=== PATIENT | female | born 2000 | race Caucasian/White ===

== ENCOUNTER → 2023-06-05 10:52 | Outpatient (REF) | payer OTHER, SELFPAY | LOC: PNTC 10:52 | PROVIDERS: ATTENDING PHYSICIAN Nurse Practitioner Family | DX: O26.841 Uterine size-date discrepancy, first trimester (principal) | CPT/HCPCS: 76816 ==

== ENCOUNTER 2023-07-03 04:37 | Inpatient (IN) | payer OTHER, SELFPAY ==
[2023-07-03 04:45] VITALS: BP 132/71
[2023-07-03 05:21] LABS: % Basophils 0.1 % (0-2); % Eosinophils 0.5 % (0-6); % Immature Granulocytes 0.5 % (0-0.5); % Lymphocytes 17.4 % (20.5-51.1); % Monocytes 3.5 % (1.7-9.3); Absolute Lymphocytes 1.4 10^3/uL (1.2-3.4); Absolute Monocytes 0.3 10^3/uL (0.1-0.6); Absolute Neutrophils 6.3 10^3/uL (1.4-6.5); Hematocrit 38.6 % (37.0-47.0); Hemoglobin 13.4 g/dL (12.0-16.0); Mean Corp Hgb Conc. 34.7 g/dL (33.0-37.0); Mean Corpuscular Hgb 30.9 pg (27.0-31.0); Mean Corpuscular Volume 88.9 fL (81.0-99.0); Nucleated Red Blood Cells % 0 %; Platelet Count 135 10^3/uL (130-400); Red Blood Cell Count 4.34 10^6/uL (4.20-5.40); Red Cell Dist. Width 12.7 % (11.5-14.5)
[2023-07-03] MEDS: PRENATAL PLUS PO (18:41)
[2023-07-04 06:20] LABS: Hematocrit 34.8 % (37.0-47.0); Hemoglobin 12.2 g/dL (12.0-16.0)
[2023-07-04] MEDS: SENOKOT-S 1 TABLET PO (08:35)
[2023-07-04] MEDS: PRENATAL PLUS 1 TABLET PO (08:35)
[2023-07-04 14:34] LABS: Syphilis/T. pallidum Ab Reflex Negative (Negative)
== END 2023-07-04 10:59 | disposition home or self-care (01) | DRG 807 ==
LOC: LDRP 04:37
PROVIDERS: ADMITTING PHYSICIAN Obstetrics & Gynecology
PROC: 10E0XZZ Delivery of Products of Conception, External Approach (ICD-10-PCS; 2023-07-03)
PROC: 10907ZC Drainage of Amniotic Fluid, Therapeutic from Products of Conception, Via Natural or Artificial Opening (ICD-10-PCS; 2023-07-03)
DX: O99.12 Other diseases of the blood and blood-forming organs and certain disorders involving the immune mechanism complicating childbirth (principal); Z37.0 Single live birth; D69.6 Thrombocytopenia, unspecified; Z3A.38 38 weeks gestation of pregnancy
CPT/HCPCS: 85014; 85018; 85025; 86780; 86850; 86870; 86900; 86901

== ENCOUNTER → 2024-04-13 12:48 | Day surgery (SDC) | payer BC, SELFPAY ==
[2024-04-13] VITALS (15 sets, daily range): BP systolic 79–114; BP diastolic 50–67
[2024-04-13 09:15] LABS: % Basophils 0.2 % (0-2); % Eosinophils 0.2 % (0-6); % Immature Granulocytes 0.7 % (0-0.5); % Lymphocytes 7.7 % (20.5-51.1); % Monocytes 2.9 % (1.7-9.3); % Neutrophils 88.3 % (42.2-75.2); Absolute Immature Granulocytes 0.1 10^3/uL (0-0.05); Absolute Monocytes 0.4 10^3/uL (0.1-0.6); Absolute Neutrophils 11.2 10^3/uL (1.4-6.5); Hematocrit 35.7 % (37.0-47.0); Hemoglobin 12.5 g/dL (12.0-16.0); Mean Corpuscular Hgb 31.3 pg (27.0-31.0); Mean Corpuscular Volume 89.3 fL (81.0-99.0); Mean Platelet Volume 12.9 fL (7.4-10.4); Nucleated Red Blood Cells % 0 %; Platelet Count 145 10^3/uL (130-400); Red Cell Dist. Width 12.7 % (11.5-14.5); White Blood Cell Count 12.7 10^3/uL (4.8-10.8)
[2024-04-13 09:34] LABS: ALT (SGPT) 15 U/L (0-35); AST (SGOT) 22 U/L (14-36); Alkaline Phosphatase 45 U/L (38-126); Blood Urea Nitrogen 17 mg/dl (7-17); Calcium 8.8 mg/dl (8.4-10.2); Carbon Dioxide 20 mmol/L (22-30); Chloride 104 mmol/L (98-107); Glucose 148 mg/dl (70-99); Sodium 138 mmol/L (135-145); Total Bilirubin 0.7 mg/dl (0.2-1.3); Total Protein 7.6 g/dl (6.3-8.2); eGFR > 60.00
[2024-04-13] MEDS: NSS 1000 IV (09:44)
--- NOTE | 2024-04-13 10:16 | ED.GENMED ---
History of Present Illness
General
Chief Complaint: Fainting/Passed Out
Source: patient
Exam Limitations: none
Time Seen by Provider: 04/13/24 09:23
Nursing documentation reviewed up to this point in time: agreed with
History of Present Illness
History of Present Illness:
Patient presents to ED after multiple episodes of syncope at home, witnessed by her . Denies any injuries from the fall, as she was lowered to the ground by her . Patient states that she felt lightheaded prior to passing out. Of
note, patient reports taking Cytotec medication last night at 9 PM, and has been bleeding since then. Patient was given medication by her PHARMACY SERVICES DIRECTOR physician yesterday after ultrasound revealed miscarriage, as it was initially suspected few weeks back.
Patient denies chest pain or shortness of breath. Denies dizziness at rest. Denies weakness. Denies nausea or vomiting. Denies abdominal pain. Denies vomiting. Denies recent illness. Denies recent change in medications or diet. Patient
otherwise is healthy, without any other significant medical history. Patient has had 2 previous uncomplicated .
Review of Systems
Review of Systems
Allergies reviewed?: Yes
All Other Systems: ROS reviewed and negative except as documented in HPI and ROS
Constitutional: Reports no symptoms; Denies fever
Respiratory: Reports no symptoms
Cardiac: Reports syncope; Denies chest pain or palpitations
ABD/GI: Reports nausea; Denies abdominal pain or vomiting
: Reports bleeding
Musculoskeletal: Reports no symptoms
Skin: Reports no symptoms
Neurological: Reports dizzy
Phy Exam
Physical Exam
Physical Exam:
Physical Exam
General: mild distress, not acutely ill. afebrile
Head: nc/at. eomi
Neck: supple. no meningeal signs.
Heart: s1/s2 regular rate and rhythm, no murmur. equal radial pulses.
Lungs: no acute respiratory distress. clear bilaterally
Abdomen: normal bowel sounds. not tender. no distention.
Neuro: alert and oriented. no focal neurological deficits
Skin: no rash
Psychiatric: well kept. interactive and cooperative
Extremities: no edema. no calf tenderness.
Course
Orders/Labs/Results
Orders:
Orders
04/13/24 08:49
EKG [Electrocardiogram (*1)] Urgent
Reason for Study: Syncope
EKG- Treatment ONCE
04/13/24 09:00
Beta HCG Quantitative Urgent
Comment: ADD ON
CBC/With Diff [Complete Blood Count/With Diff] Urgent
Comprehensive Metabolic Panel Urgent
04/13/24 09:29
Type And Crossmatch [Type+Screen] Urgent
04/13/24 09:39
Add On- LAB Urgent
Tests Added?: hcg quant
04/13/24 09:44
0.9% Sodium Chloride 1000 ml [Nss] 1,000 ml IV BOLUS
04/13/24 Lunch
NPO
Allow oral meds: No
Allow clear liquids: No
04/13/24 10:22
0.9% Sodium Chloride 500 ml [Nss] 500 ml IV BOLUS
04/13/24 10:25
US Pelvis Transvaginal Only Urgent
Reason For Exam: vaginal bleeding, s/p miscarriage
04/13/24 10:52
Hematocrit Urgent
Hemoglobin Urgent
04/13/24 10:57
Sequential Compression Sleeves [Pneumatic Compression Sleeves] As Directed
Type: Knee high
04/13/24 10:58
Doxycycline Hyclate [Vibramycin] 200 mg 0.9% Sodium Chloride 250 ml [Nss] 250 ml IV PRE OP
DX Deep Vein Thrombosis Video Routine
04/13/24 11:51
Fentanyl Citrate/Pf [Sublimaze] 100 mcg .ROUTE .STK-MED ONE
Lidocaine HCl/Pf [Xylocaine-Mpf 1% Vial] 50 mg .ROUTE .STK-MED ONE
Midazolam HCl [Versed] 2 mg .ROUTE .STK-MED ONE
Propofol [Diprivan] 20 ml .ROUTE .STK-MED
04/13/24 12:04
* Blood Bank Products Urgent
Blood Bank Products: *Packed RBC Leuko(PRBC's)
Quantity: 2
Transfuse Today: Hold for OR
Reason: Bleeding
04/13/24 12:16
HYDROmorphone [Dilaudid] 0.25 mg IV PACU-Q5MPRN PRN
HYDROmorphone [Dilaudid] 0.5 mg IV PACU-Q5MPRN PRN
Meperidine [Demerol] 12.5 mg IV PACU-Q5MPRN PRN
Ondansetron Injectable [Zofran] 4 mg IV PACU-ONCEPRN PRN
Prochlorperazine [Compazine] 5 mg IV PACU-ONCEPRN PRN
Notify MD As Directed
Notify physician if: for SDS patients with known or suspected sleep obstructive sleep apnea, monitor in the
PACU.
Notify MD for any apneic/desaturation episodes
O2 Therapy [RESP] Urgent
Titrate/Wean O2 to maintain O2 sat greater than (%): 92
Special Instructions: -Provide supplemental oxygen to achieve O2 sat of 92% or greater.
-After 15 min, may wean O2 and discontinue if patient is able to maintain O2 sat of 92%
or greater during recovery period.
If patient is a discharge home, without oxygen therapy, notify anestheiologist if
unable to maintain O2 SAT of 92% or greater on room air for MD clearance.
04/13/24 12:30
Normosol (Mult Electrolytes) [Normosol-R/Plasmalyte-A] 1,000 ml IV PER PROTOCOL
04/13/24 12:48
Phenylephrine HCl/0.9% NaCl [Yaron-Synephrine] 1,000 mcg .ROUTE .STK-MED ONE
04/13/24 12:53
Dexamethasone Sod Phosphate [Decadron] 20 mg .ROUTE .STK-MED ONE
Ketorolac [Toradol] 30 mg .ROUTE .STK-MED ONE
Ondansetron Injectable [Zofran] 4 mg .ROUTE .STK-MED ONE
04/13/24 13:04
Rocuronium [place] [Rocuronium] 50 mg .ROUTE .STK-MED ONE
Succinylcholine Chloride [Succinylcholine] 200 mg .ROUTE .STK-MED ONE
04/13/24 13:08
Methylergonovine Maleate [Methergine Injection] 0.2 mg IM ONCE STA
04/13/24 13:21
OR Pathology Routine
Pre-Operative Diagnosis: Incomplete Ab
Operative Procedure: Dilation and Evacuation
Surgeon: Jalil
Circulating Nurse: Anthony
Specimen Type: Products of Conception
04/13/24 14:00
Acetaminophen [Tylenol] 650 mg PO SDS-Q4HPRN PRN
Oxycodone [Roxicodone] 10 mg PO SDS-Q4HPRN PRN
Oxycodone [Roxicodone] 5 mg PO SDS-Q4HPRN PRN
04/13/24 15:00
Normosol (Mult Electrolytes) [Normosol-R/Plasmalyte-A] 1,000 ml IV SDS-ONCE
04/13/24 16:45
Ondansetron Injectable [Zofran] 4 mg IV SDS-ONCEPRN PRN
Abnormal Lab Results
04/13/24 04/13/24 04/13/24
09:00 09:29 10:52
WBC 12.7 H 10^3/uL
(4.8-10.8)
RBC 4.00 L 10^6/uL
(4.20-5.40)
Hgb 9.6 L D g/dL
(12.0-16.0)
Hct 35.7 L % 27.9 L %
(37.0-47.0) (37.0-47.0)
MCH 31.3 H pg
(27.0-31.0)
MPV 12.9 H fL
(7.4-10.4)
Abs Immat Gran (auto) 0.1 H 10^3/uL
(0-0.05)
Absolute Neuts (auto) 11.2 H 10^3/uL
(1.4-6.5)
Absolute Lymphs (auto) 1.0 L 10^3/uL
(1.2-3.4)
Immature Gran % 0.7 H %
(0-0.5)
Neutrophils % 88.3 H %
(42.2-75.2)
Lymphocytes % 7.7 L %
(20.5-51.1)
Carbon Dioxide 20 L mmol/L
(22-30)
Glucose 148 H mg/dl
(70-99)
Antibody Screen Positive A
(Negative)
04/13/24 10:52
04/13/24 09:00
Vital Signs
Initial and Last Documented VS:
Initial Vital Signs
Temp Pulse Resp BP Pulse Ox
98.1 F 111 16 107/67 99
04/13/24 08:45 04/13/24 08:45 04/13/24 08:45 04/13/24 08:45 04/13/24 08:45
Last Documented Vital Signs
Temp Pulse Resp BP Pulse Ox
97.6 F 77 16 101/53 99
04/13/24 13:08 04/13/24 13:30 04/13/24 13:08 04/13/24 13:30 04/13/24 13:30
MDM/Problems Addressed
MDM/Problems Addressed:
H/H noted, along with improved BP after IVF administration. Pelvic exam (NEELA Monterroso, at bedside) : unable to completed due to sig. bright red blood noted with initial insertion of speculum
Pt being evaluated by (PHARMACY SERVICES DIRECTOR) at bedside. Requesting Pelvic US, which will be performed at bedside. Afterwards, patient will proceed to OR
*Critical Care Note
Total Time (30-74mins, 75-104mins- exclusive of procedures): Not Applicable
ED Attending Note
-
Portions of this chart may have been created with voice recognition software.� Occasional wrong word or��sound alike� substitutions may have occurred due to the inherent limitations of voice recognition software.
Discharge Plan
Departure
Patient Disposition: OR
Date of Disposition: 04/13/24
Time of Disposition: 10:49
Admit to: OR
Presentation/result/management discussed w/ accepting MD/DO:
Discharge Problem:
Vaginal bleeding, Vasovagal syncope
Interventions
Interventions:
*Risk Screen - Suicide Last Done: 04/13/24 08:45
*General Assessment Last Done: 04/13/24 12:32
*Neglect/Abuse Screening Last Done: 04/13/24 08:45
ED- Fall Risk Assessment Last Done: 04/13/24 12:32
*ED COVID-19 Vaccine History Last Done: 04/13/24 12:32
*Nursing Disposition Last Done: 04/13/24 12:32
ED- Cardiac Assessment Last Done: 04/13/24 09:31
ED- Neurological Assessment Last Done: 04/13/24 09:34
Discharge Date and Time
Discharge Date/Time: 04/13/24 12:33
[2024-04-13] MEDS: NSS 500 IV (10:30)
[2024-04-13 11:24] LABS: Hematocrit 27.9 % (37.0-47.0); Hemoglobin 9.6 g/dL (12.0-16.0)
[2024-04-13] MEDS: METHERGINE INJECTION 0.2 MG IM (13:22)
--- NOTE | 2024-04-13 15:12 | HP.FOC2 ---
Focused History & Physical
Chief Complaint
HPI:
Chief Complaint: Vaginal Bleeding s/p miscarriage, syncopal episode
HPI / Indication for Planned Procedure:
23yo who was diagnosed with a Missed AB on 04/12 @ 6weeks presents from home due to heavy VB and a syncopal episode. She states that after being diagnosed with a missed AB yesterday, she decided to manage medically and did cytotec last night.
She started to have heavy bleeding last night and this has continued this morning. She states she felt weak and light headed and had a syncopal episode after which she came to the ER. She continues to have heavy bleeding. Per ER physician on
presentation she was hypotensive 70s-80s/50s but did respond to IVF hydration. Patient states she is not having a lot of pain, just feels cold
On SSE: large clots in vagina and active bleeding noted, appears to be tissue at the os though unable to extract with ring forceps due to patient discomfort and limited visibility.
Relevant Past Medical History: Negative
Relevant Social History: Negative
Relevant Family History: Negative
Relevant Past Surgical History: Negative
Review of Systems
Review of Pertinent Systems: All Systems Negative
Medication
See Medication form for detailed medications: Yes
Medication List (including Herbals & OTC):
No Meds [No Current Medications] 04/13/24
Medications Reviewed: Yes
Allergies and Reactions
Patient has Allergies: Yes
Noted Allergies and Reactions:
Allergy/AdvReac Type Severity Reaction Status Date / Time
shellfish derived Allergy Hives Verified 04/13/24 08:44
Pertinent Physical Exam
All Other Systems: Negative
Abdomen: Normal
Diagnosis / Assessment
23yo with incomplete SAB at 6wks resulting in hemorrhage
Plan / Procedure
Reviewed exam findings and clinical presentation with patient are all concerning for hemorrhage 2/2 an incomplete passage of tissue. To limit further heavy bleeding I recommended that we proceed with surgical intervention to complete the evacuation.
Procedure of a D&E was reviewed with the patient including risks of bleeding, infection, injury to uterus and surrounding structures, incomplete evacuation, Asherman's, need for additional procedures. Also reviewed possibility of needing a blood
transfusion. Hgb dropped from 12->9.6 over 2 hours, will not give now but would recommend if she were to become hypotensive again. Consents signed. OR and nursing vendor quality supervisor and ED informed
NPO
200mg Doxycycline to OR.
Anesthesia/Sedation to be done by Anesthesia Provider: Yes
Imaging Data
-
Pelvic US: Nonvisualization of the left ovary.
Probable benign complex right ovarian cyst. Repeat ultrasound in a few weeks is recommended.
Uterus is normal in size contour and echogenicity measuring 11.4 x 4.9 x 5.8 cm.
The endometrial stripe measures 1.6 cm and is heterogeneous. There is no associated blood flow to the endometrial stripe, retained products cannot be completely excluded.
No intrauterine identified.
Vital Signs / Labs
-
Vital Signs and Labs:
Temp Pulse Resp BP Pulse Ox
97.6 F 77 16 101/53 99
04/13/24 13:08 04/13/24 13:30 04/13/24 13:08 04/13/24 13:30 04/13/24 13:30
04/13/24 10:52
04/13/24 09:00
04/13/24 04/13/24 04/13/24
09:00 09:29 10:52
WBC 12.7 H
RBC 4.00 L
Hgb 9.6 L D
Hct 35.7 L 27.9 L
MCH 31.3 H
MPV 12.9 H
Abs Immat Gran (auto) 0.1 H
Absolute Neuts (auto) 11.2 H
Absolute Lymphs (auto) 1.0 L
Immature Gran % 0.7 H
Neutrophils % 88.3 H
Lymphocytes % 7.7 L
Carbon Dioxide 20 L
Glucose 148 H
Antibody Screen Positive A
== END ==
LOC: EMR 08:41 → PACU 12:48
PROVIDERS: Emergency Medicine; ATTENDING PHYSICIAN Emergency Medicine
DX: O03.1 Delayed or excessive hemorrhage following incomplete spontaneous abortion (principal)
CPT/HCPCS: 59812; 88305; 76830; 80053; 84702; 85014; 85018; 85025; 86850; 86870; 86900; 86901; 93005; 96360; 96361; 99285

== ENCOUNTER 2024-06-29 12:17 | Emergency (ER) | payer BC, SELFPAY ==
[2024-06-29 12:18] VITALS: BP 120/77
[2024-06-29] MEDS: NSS 1000 IV (13:10)
[2024-06-29 13:21] LABS: % Basophils 0.2 % (0-2); % Eosinophils 0.9 % (0-6); % Immature Granulocytes 0.3 % (0-0.5); % Lymphocytes 18.8 % (20.5-51.1); % Monocytes 4.7 % (1.7-9.3); % Neutrophils 75.1 % (42.2-75.2); Absolute Eosinophils 0.1 10^3/uL (0-0.7); Absolute Lymphocytes 1.2 10^3/uL (1.2-3.4); Absolute Monocytes 0.3 10^3/uL (0.1-0.6); Absolute Neutrophils 4.9 10^3/uL (1.4-6.5); Hematocrit 36.9 % (37.0-47.0); Hemoglobin 12.6 g/dL (12.0-16.0); Mean Corp Hgb Conc. 34.1 g/dL (33.0-37.0); Mean Corpuscular Hgb 28.7 pg (27.0-31.0); Mean Corpuscular Volume 84.1 fL (81.0-99.0); Mean Platelet Volume 11.5 fL (7.4-10.4); Nucleated Red Blood Cells % 0 %; Platelet Count 158 10^3/uL (130-400); Red Blood Cell Count 4.39 10^6/uL (4.20-5.40); Red Cell Dist. Width 13.7 % (11.5-14.5); White Blood Cell Count 6.5 10^3/uL (4.8-10.8)
--- NOTE | 2024-06-29 13:33 | ED.GENMED ---
History of Present Illness
General
Chief Complaint: Problems
Source: patient
Exam Limitations: none
Time Seen by Provider: 06/29/24 12:41
Nursing documentation reviewed up to this point in time: agreed with
History of Present Illness
History of Present Illness:
Patient is a 23-year-old G4, P2 at approximately 7 weeks gestation presenting to the emergency department with vaginal bleeding and abdominal cramping. Patient reports onset of bleeding midmorning which she describes as a 'gush'. Bleeding has
persisted. She also notes very mild lower abdominal cramping. Patient denies any associated chest pain, shortness of breath, lightheadedness/dizziness. No syncopal events.
Of note�patient did not have an ultrasound performed this past week at a clinic which showed a twin IUP. She is yet to have this confirmed with her GLASS ENAMEL MIXER. She did contact [facility] this morning recommended evaluation in the
emergency department.
Patient has a recent history of miscarriage in 05/07 which required an emergent D&C secondary to significant blood loss.
Review of Systems
Review of Systems
Allergies reviewed?: Yes
All Other Systems: ROS reviewed and negative except as documented in HPI and ROS
Phy Exam
Physical Exam
Physical Exam:
Vitals: Patient's vital signs are stable. Afebrile
General: Patient is well appearing, no acute distress. Nontoxic appearing.
Skin: Warm and dry, no rashes or lesions
Head: Normocephalic, atraumatic
Eyes: Sclera nonicteric. EOMs intact. No nystagmus.
Throat: Protecting airway
Neck: Normal ROM
Cardiac: Regular rate and rhythm, no murmurs.
Pulm: Normal respiratory effort, no wheezes, rales, rhonchi heard on exam.
Abdomen: Abdomen soft and nontender.
Extremities: No evidence of cyanosis or edema
Neuro: AAOx3. Grossly intact
Psychiatric: Normal affect.
Course
Orders/Labs/Results
Orders:
Orders
06/29/24
US Preg 1st Trim EA Additional Urgent
Reason For Exam: twins
06/29/24 13:00
1st Trimester US [US 1st Trimester] Urgent
Comment:
Reason For Exam: vaginal bleeding, cramping
06/29/24 13:05
0.9% Sodium Chloride 1000 ml [Nss] 1,000 ml IV BOLUS
06/29/24 13:11
Type+Screen Urgent
Complete Blood Count/With Diff Urgent
Comprehensive Metabolic Panel Urgent
HCG, Beta Quantitative [Beta HCG Quantitative] Urgent
Is this a screen?: No
06/29/24 13:35
Consult GLASS ENAMEL MIXER [GLASS ENAMEL MIXER CONSULT] Urgent
Consulting Provider: Maya Thomas
Was physician already notified: Yes
06/29/24 15:41
HGB [Hemoglobin] Urgent
Urinalysis Reflex To Culture Urgent
Date Specimen was Collected: 06/29/24
Time Specimen was Collected: 15:33
Urine Microscopic Reflex Cult Urgent
Abnormal Lab Results
06/29/24 06/29/24
13:11 15:41
Hgb 11.6 L g/dL
(12.0-16.0)
Hct 36.9 L %
(37.0-47.0)
MPV 11.5 H fL
(7.4-10.4)
Lymphocytes % 18.8 L %
(20.5-51.1)
Ur Occult Blood Reflex 4+ A
(Negative)
Urine RBC 16-20 A /HPF
(0-2)
Urine Bacteria (Reflex) Few A
(Negative)
Antibody Screen Positive A
(Negative)
06/29/24 15:41
06/29/24 13:11
Vital Signs
Initial and Last Documented VS:
Initial Vital Signs
Temp Pulse Resp BP Pulse Ox
98.3 F 80 16 120/77 100
06/29/24 12:18 06/29/24 12:18 06/29/24 12:18 06/29/24 12:18 06/29/24 12:18
Last Documented Vital Signs
Temp Pulse Resp BP Pulse Ox
98.3 F 63 18 106/88 100
06/29/24 12:18 06/29/24 16:11 06/29/24 16:11 06/29/24 16:11 06/29/24 16:11
Information
Weeks gestation: Weeks: (6W3D)
Location: Location: (IUP)
MDM/Problems Addressed
Differential Diagnosis Includes:
Not limited to: threatened , missed , subchorionic hemorrhage, ectopic , etc.
MDM/Problems Addressed:
Patient is a 23-year-old female at approximately 6 - 7 weeks gestation with twin presenting with vaginal bleeding and mild abdominal cramping this morning. No lightheadedness/dizziness, shortness of breath or syncopal episodes. She
did have an ultrasound performed outpatient approximately one week ago documenting twin IUP. Recent history of miscarriage requiring emergent D&C 3 months ago. Patient hemodynamically stable on arrival to ED today. Physical exam as above. Will check
labs, type & screen, and pelvic ultrasound. Will consult GLASS ENAMEL MIXER given patient history.
Update: hemoglobin stable. Otherwise labs unremarkable. GLASS ENAMEL MIXER, Dr. Gomez was down to evaluate patient at bedside who performed pelvic exam and reports little evidence of bleeding with no active bleeding from cervix. Ultrasound pending.
Update: pelvic ultrasound shows twin IUP- fetus A with heart rate of 110 with twin B heart rate lower at 82. They did notice a subchorionic hemorrhage. Suspect bleeding likely secondary to subchronic hemorrhage. Repeat hemoglobin of 11.6 and
patient is no longer bleeding. Impression is threatened miscarriage with subchronic hemorrhage documented on ultrasound. Discussed with GLASS ENAMEL MIXER � plan for pelvic rest, outpatient follow up. Patient blood type AB positive � [place] not indicated.
Return precautions discussed. Patient remains hemodynamically stable and ready for discharge home.
Chronic conditions affecting care:
N/A
Acute Exacerbation and/or Progression of Chronic Illness:
N/A
*Radiology
Radiology exam reviewed: radiology read reviewed
*Pulse Oximetry
Patient hypoxic: no
*EKG
Interpreted by ED Provider?: NA
*Reinforcing Steel Erector Interpretation
Rate: Reinforcing Steel Erector- N/A
*Critical Care Note
Total Time (30-74mins, 75-104mins- exclusive of procedures): Not Applicable
Patient Management
Discussion with other providers: Manager Product (Case discussed w/ OBGYN)
ED Attending Note
-
Portions of this chart may have been created with voice recognition software.� Occasional wrong word or��sound alike� substitutions may have occurred due to the inherent limitations of voice recognition software.
Discharge Plan
Departure
Patient Disposition: Home (Routine Discharge)
Date of Disposition: 06/29/24
Time of Disposition: 17:13
Patient with high blood pressure during this ER visit?: No
Discharge Problem:
Threatened miscarriage in early
Instructions: Bleeding in early - ED discharge instructions
Prescriptions:
No Action
No Current Medications
0
Referrals:
Sangeetha Noonan DO [Family Provider] -
Maya Thomas DO [Active] - Keep scheduled appt
Activity Restrictions/Additional Instructions:
RETURN TO THE EMERGENCY DEPARTMENT WITH ANY SEVERE ABDOMINAL PAIN,/HEAVY VAGINAL BLEEDING, LIGHTHEADEDNESS/DIZZINESS, EPISODES OF FAINTING, WORSENING IN CURRENT SYMPTOMS, OR ANY OTHER CONCERNS
- As discussed�you should adhere to pelvic rest until cleared by GLASS ENAMEL MIXER. Follow-up as scheduled on for ultrasound/GLASS ENAMEL MIXER appointment.
- Stay well-hydrated.
Monitor your symptoms closely and return to the emergency department for any acute worsening/concerns or other concerns. GLASS ENAMEL MIXER recommends return if you are soaking through a pad an hour.
Interventions
Interventions:
*Risk Screen - Suicide Last Done: 06/29/24 12:18
*General Assessment Last Done: 06/29/24 13:50
*Neglect/Abuse Screening Last Done: 06/29/24 12:18
*ED- Fall Risk Assessment Last Done: 06/29/24 13:50
*ED COVID-19 Vaccine History Last Done: 06/29/24 13:50
*Nursing Disposition Last Done: 06/29/24 17:30
ED-Female Genitourinary Assessment Last Done: 06/29/24 13:50
Discharge Date and Time
Discharge Date/Time: 06/29/24 17:31
Print Language: SAUDI ARABIAN
[2024-06-29 13:43] LABS: ALT (SGPT) 12 U/L (0-35); AST (SGOT) 19 U/L (14-36); Albumin 4.1 g/dl (3.5-5.0); Alkaline Phosphatase 46 U/L (38-126); Blood Urea Nitrogen 11 mg/dl (7-17); Calcium 9.5 mg/dl (8.4-10.2); Carbon Dioxide 26 mmol/L (22-30); Chloride 106 mmol/L (98-107); Glucose 88 mg/dl (70-99); Potassium 4.1 mmol/L (3.5-5.1); Sodium 139 mmol/L (135-145); Total Bilirubin 0.5 mg/dl (0.2-1.3); Total Protein 6.7 g/dl (6.3-8.2); eGFR > 60.00
[2024-06-29 16:00] LABS: Hemoglobin 11.6 g/dL (12.0-16.0)
[2024-06-29 16:01] LABS: Urine Albumin Negative (Neg - Trace); Urine Bilirubin Negative (Negative); Urine Character Clear (Clear); Urine Color Yellow; Urine Glucose Negative (Negative); Urine Ketone Negative (Negative); Urine Leukocyte Negative (Negative); Urine Nitrite Negative (Negative); Urine Occult Blood 4+ (Negative); Urine Specific Gravity 1.015 (<1.030); Urine Urobilinogen Negative (Neg - 1+)
[2024-06-29 16:02] LABS: Urine Bacteria Few (Negative); Urine Red Blood Cell 16-20 /HPF (0-2)
[2024-06-29 16:11] VITALS: BP 106/88
--- NOTE | 2024-06-29 17:04 | CON.MD ---
Consultation - Medical
-
Consult: vaginal bleeding in
HPI: Patient is a 23yo @7.2 weeks (LMP 05/09) who presented to the ED with complaints of heavy vaginal bleeding. She states she was at home and had a large amount of vaginal bleeding. She soaked through 2 pads in an hour. She has a history of
an incomplete with a hemorrhage requiring an emergent D&C. She says she had an elective ultrasound that showed a twin earlier this week and one twin had a heart beat and the other one was measuring slightly smaller without a
heartbeat. She denies dizziness, lightheadedness, chest pain, or shortness of breath. On, re-evaluation, she reports she bleeding has slowed a lot and it is now only spotting.
PMHx: denies
Meds: denies
Surghx: D&C
All: shellfish
Socialhx: denies tobacco, etoh or illicit drug use
Famhx: non-contributory
OBHx: SVDx2, SABx1 requiring emergent D&C
O:
BP 106/88, HR 63
General: well appearing, resting in bed
Cardio: regular
Pulm: no increased work of breathing
Abd: soft, nontender
SSE: 5cc of blood in vaginal vault, after cleared away no active bleeding from the cervix, cervix visually closed
Pelvic US:
Twin , which appears to be dichorionic diamniotic.
On the longitudinal scan of the uterus, Twin A is more distal in location, and Twin B is more fundal in location.
Twin A: Gestational sac mean sac diameter of 2.14 cm. The crown-rump length is 0.71 cm, projecting to an estimated gestational age of 6 weeks 5 days +/- 1 week. The heart rate is 110 bpm.
Complex collection measuring 5.3 x 3.6 x 2.2 cm adjacent to the anterior inferior margin of twin A gestational sac, consistent with subchorionic hemorrhage.
Twin B: Gestational sac mean sac diameter is 1.88 cm. [place]-rump length is 0.44 cm, projecting to an estimated gestational age of 6 weeks 1 day +/- 1 week. The heart rate is 82 bpm.
The internal os appears closed.
No free pelvic fluid.
Right ovary hemorrhagic corpus luteum measuring 2.1 cm.
IMPRESSION:
Twin intrauterine gestation appears to be dichorionic diamniotic. Estimated gestational age 6 weeks 3 days +/- 1 week.
Large complex collection adjacent to the anterior inferior margin of Twin A gestational sac, consistent with subchorionic hemorrhage.
The internal os appears closed.
Twin B appears slightly smaller than twin A, with a low heart rate of 82 bpm. Twin A heart rate is 110 bpm.
A/P: 23yo @7.2 weeks with threatened
- Pelvic ultrasound reviewed with patient and her father. Di-Di twin intrauterine . Twin A with HR 110 and twin B HR 82. Large subchorionic hemorrhage inferior to Twin A- likely the cause of bleeding. The low heart rate could be evolving
miscarriage or early intrauterine .
- VSS and patient hemodynamically stable. She has no s/sx of anemia and her bleeding is now only spotting
- She has an appointment in the office and ultrasound on which she was instructed to keep
- ED return precautions reviewed. Patient on pelvic rest and to avoid strenuous activity
== END 2024-06-29 17:31 | disposition home or self-care (01) ==
LOC: EMR 12:17
PROVIDERS: Physician Assistant; CONSULT PHYSICIAN Student in an Organized Health Care Education/Training Program; EMERGENCY PHYSICIAN Student in an Organized Health Care Education/Training Program; FAMILY PHYSICIAN Obstetrics & Gynecology
DX: O20.0 Threatened abortion (principal); O30.041 Twin pregnancy, dichorionic/diamniotic, first trimester; Z3A.01 Less than 8 weeks gestation of pregnancy
CPT/HCPCS: 99284; 76801; 76802; 80053; 81003; 81015; 84702; 85018; 85025; 86850; 86870; 86900; 86901

== ENCOUNTER → 2024-09-02 07:01 | Outpatient (REF) | payer BC, SELFPAY | LOC: PNTC 07:01 | PROVIDERS: ATTENDING PHYSICIAN Obstetrics & Gynecology | DX: O31.20X0 Continuing pregnancy after intrauterine death of one fetus or more, unspecified trimester, not applicable or unspecified (principal); O36.1920 Maternal care for other isoimmunization, second trimester, not applicable or unspecified; O20.8 Other hemorrhage in early pregnancy | CPT/HCPCS: 76805 ==

== ENCOUNTER 2025-02-07 07:24 | Inpatient (IN) | payer BC, SELFPAY ==
[2025-02-07 07:42] VITALS: BP 107/63; BMI 26.1
[2025-02-07] MEDS: LR 1000 IV ×2 (08:00→10:15)
[2025-02-07] MEDS: PITOCIN 30 UNITS/NSS 500 ML IV (08:39)
[2025-02-07 08:40] LABS: Hematocrit 40.1 % (37.0-47.0); Hemoglobin 14.0 g/dL (12.0-16.0); Mean Corp Hgb Conc. 34.9 g/dL (33.0-37.0); Mean Corpuscular Volume 86.2 fL (81.0-99.0); Nucleated Red Blood Cells % 0 %; Platelet Count 135 10^3/uL (130-400); Red Cell Dist. Width 13.2 % (11.5-14.5)
[2025-02-07] MEDS: SUBLIMAZE 100 MCG EPIDURAL (11:13)
[2025-02-07] MEDS: FENTANYL/BUPIVACAINE 100 EPIDURAL (11:14)
[2025-02-08 05:15] LABS: Hematocrit 35.1 % (37.0-47.0); Hemoglobin 11.8 g/dL (12.0-16.0)
[2025-02-11 15:09] LABS: Syphilis/T. pallidum Ab Reflex Negative (Negative)
== END 2025-02-08 15:26 | disposition home or self-care (01) | DRG 807 ==
LOC: LDRP 07:24
PROVIDERS: ADMITTING PHYSICIAN Obstetrics & Gynecology
PROC: 10907ZC Drainage of Amniotic Fluid, Therapeutic from Products of Conception, Via Natural or Artificial Opening (ICD-10-PCS; 2025-02-07)
PROC: 3E033VJ Introduction of Other Hormone into Peripheral Vein, Percutaneous Approach (ICD-10-PCS; 2025-02-07)
PROC: 10D07Z6 Extraction of Products of Conception, Vacuum, Via Natural or Artificial Opening (ICD-10-PCS; 2025-02-07)
DX: O99.12 Other diseases of the blood and blood-forming organs and certain disorders involving the immune mechanism complicating childbirth (principal); Z37.0 Single live birth; D69.6 Thrombocytopenia, unspecified; O76 Abnormality in fetal heart rate and rhythm complicating labor and delivery; Z3A.39 39 weeks gestation of pregnancy; O69.3XX0 Labor and delivery complicated by short cord, not applicable or unspecified
CPT/HCPCS: 85014; 85018; 85025; 86780; 86850; 86870; 86900; 86901; 88307